=== PATIENT | male | born 1960 | race Asian ===

== ENCOUNTER 2021-12-10 20:47 | Emergency (ER) | payer OTHER ==
[~2021-12-10] VITALS: Ht 175.3 cm; Wt 81.8 kg
[~2021-12-10 20:47] MED LIST: HYDR25TA2 PO; LISI-894 PO
[2021-12-10] MEDS ORDERED: KETOROLAC TROMETHAMINE 30 MG/ML VIAL IM ONE (21:45)
[2021-12-10 23:10] VITALS: BP 141/89
== END 2021-12-10 23:22 | disposition home or self-care (01) ==
LOC: EMS 20:55
DX: S89.81XA Other specified injuries of right lower leg, initial encounter (principal); M25.561 Pain in right knee; Z79.899 Other long term (current) drug therapy; X50.0XXA Overexertion from strenuous movement or load, initial encounter; Y93.89 Activity, other specified; Y92.89 Other specified places as the place of occurrence of the external cause; Y99.8 Other external cause status
CPT/HCPCS: 73562; 96372; 99283; J1885